=== PATIENT | female | born 1940 | race African-American/Black ===

== ENCOUNTER 2016-10-09 12:28 | Emergency (ER) | payer MEDICARE ==
[~2016-10-09] VITALS: Ht 167.6 cm; Wt 76.0 kg
[~2016-10-09 12:28] MED LIST: CELE200C PO; ENEMENE6 RE; HYDR-3533 PO; MACR100C PO; METF-324 PO; NORC7.5T PO; PRED20 PO; PRIN10TA PO
[2016-10-09 12:36] VITALS: BP 106/52; PULSE 76; RESP 20; TEMP 98.8; O2SAT 98
[2016-10-09] MEDS ORDERED: GABA300C5 PO (14:30)
[2016-10-09] MEDS ORDERED: HYDR-3533 PO (14:30)
[2016-10-09] MEDS ORDERED: LISI30TA4 PO (14:30)
[2016-10-09] MEDS ORDERED: METF1000 PO (14:30)
[2016-10-09] MEDS ORDERED: ALPR.5 PO (14:30)
[2016-10-09] MEDS ORDERED: ACETAMINOPHEN 325 MG TAB PO ONE (15:15)
--- NOTE | 2016-10-09 15:42 | RADRPT ---
EXAM DATE/TIME: 10/09/2016 15:14 [facility] COMPARISON: CT ABDOMEN & PELVIS W/O CONTRAST, January 15, 2015, 19:45. INDICATIONS : Evaluate for trauma due to fall. RADIATION DOSE: 56.35 CTDIvol (mGy) MEDICAL HISTORY : Cardiovascular disease. Hypertension. Diabetes mellitus type 2. SURGICAL HISTORY : None. ENCOUNTER: Initial ACUITY: 1 day PAIN SCALE: 2/10 LOCATION: Right cranial TECHNIQUE: Multiple contiguous axial images were obtained of the head. Using automated exposure control and adj ustment of the mA and/or kV according to patient size, radiation dose was kept as low as reasonably a chievable to obtain optimal diagnostic quality images. DICOM format image data is available electro nically for review and comparison. FINDINGS: CEREBRUM: The ventricles are normal for age. No evidence of midline shift, mass lesion, hemorrhage or acute in farction. No extra-axial fluid collections are seen. POSTERIOR FOSSA: The cerebellum and brainstem are intact. The 4th ventricle is midline. The cerebellopontine angle i s unremarkable. EXTRACRANIAL: The visualized portion of the orbits is intact. SKULL: The calvaria is intact. No evidence of skull fracture. CONCLUSION: 1. No acute intracranial abnormality. Augustine Lake MD on October 09, 2016 at 15:38 Board Certified Radiologist. This report was verified electronically.
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
--- NOTE | 2016-10-09 16:47 | RADRPT ---
EXAM DATE/TIME: 10/09/2016 16:26 [facility] COMPARISON: No previous studies available for comparison. INDICATIONS : Right sided facial pain due to fall. RADIATION DOSE: 51.94 CTDIvol (mGy) MEDICAL HISTORY : Cardiovascular disease. Hypertension. Diabetes mellitus type 2. SURGICAL HISTORY : None. ENCOUNTER: Initial ACUITY: 1 day PAIN SCORE: 6/10 LOCATION: Right facial region. TECHNIQUE: Volumetric scanning of the facial bones was performed. Using automated exposure control and adjustme nt of the mA and/or kV according to patient size, radiation dose was kept as low as reasonably achiev able to obtain optimal diagnostic quality images. DICOM format image data is available electronicall y for review and comparison. FINDINGS: ORBITS: The orbital and infraorbital osseous structures are intact. The retroconal structures have a normal configuration. No radiopaque foreign bodies are seen. NASAL BONE: The nasal bone and maxillary spine are intact ZYGOMATIC ARCHES: Symmetric without evidence of fracture. SINUSES: The maxillary, ethmoid and frontal sinuses are intact. No air-fluid levels seen. NASAL CAVITY: The nasal septum is intact and midline. The lacrimal ducts are intact. SOFT TISSUES: No radiopaque foreign bodies seen. No soft-tissue swelling is seen. INTRACRANIAL: No intracranial air seen. CRIBIFORM PLATE: Grossly intact. Calcified plaque involving the carotid arteries bilaterally. CONCLUSION: 1. No acute abnormality. 2. Calcified atherosclerotic plaque involving the carotid arteries. Saran Herbert Jr., MD on October 09, 2016 at 16:41 Board Certified Radiologist. This report was verified electronically.
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
== END 2016-10-09 18:04 | disposition home or self-care (01) ==
LOC: NEPD 12:28
DX: S01.511A Laceration without foreign body of lip, initial encounter (principal); S00.81XA Abrasion of other part of head, initial encounter; E11.9 Type 2 diabetes mellitus without complications; M13.80 Other specified arthritis, unspecified site; I10 Essential (primary) hypertension; Z79.899 Other long term (current) drug therapy; W18.00XA Striking against unspecified object with subsequent fall, initial encounter
CPT/HCPCS: 70450; 70486; 72125; 99284